=== PATIENT | male | born 1965 | race Caucasian/White ===

== ENCOUNTER 2023-12-25 11:23 | Outpatient (CLI) | payer OTHER | END 2023-12-25 11:24 | disposition home or self-care (01) | LOC: NAV RAD 11:23 | PROVIDERS: ATTEND Family Medicine | DX: I25.10 Atherosclerotic heart disease of native coronary artery without angina pectoris (principal); I50.30 Unspecified diastolic (congestive) heart failure | CPT/HCPCS: 71046 ==